=== PATIENT | female | born 1970 | race Caucasian/White ===

== ENCOUNTER 2017-05-10 17:55 | Emergency (ER) | payer BC, OTHER ==
[~2017-05-10] VITALS: Ht 165.1 cm; Wt 45.8 kg
[2017-05-10] MEDS ORDERED: IBUPROFEN 200200 M1 PO (18:56)
[2017-05-10] MEDS ORDERED: AMOXICILLIN 50500 MG PO (18:56)
[2017-05-10 19:07] LABS: HEMATOCRIT 40.6 % (37.0-47.0); MANUAL DIFF YES; MCH 33.7 pg (26.0-34.0); MCHC 34.6 g/dL (28.0-37.0); MCV 97.4 fL (80.0-100.0); PLATELET COUNT 203 thou/uL (150-400); RBC 4.16 mil/uL (4.20-5.00); RDW 12.9 % (10.5-14.5); WBC 7.4 thou/uL (4.0-11.0)
[2017-05-10 19:34] LABS: ABSOLUTE NEUTROPHILS 5.6 thou/uL (1.4-8.2); TOTAL CELL COUNT 100
[2017-05-10 19:35] LABS: ANISOCYTOSIS 1+
[2017-05-10 20:17] LABS: CALCIUM 9.8 mg/dL (8.5-10.1); CREATININE 0.8 mg/dL (0.6-1.0)
[2017-05-10] MEDS ORDERED: PENICILLIN125 MG/51 GT (21:20)
[2017-05-10] MEDS ORDERED: PRELONE15 MG/5 ML PO (21:20)
[2017-05-10 22:34] VITALS: BP 134/84
== END 2017-05-10 21:21 | disposition home or self-care (01) ==
LOC: ER 17:55
PROVIDERS: Physician Assistant
DX: J40 Bronchitis, not specified as acute or chronic (principal); J02.9 Acute pharyngitis, unspecified; F17.210 Nicotine dependence, cigarettes, uncomplicated; F10.99 Alcohol use, unspecified with unspecified alcohol-induced disorder